=== PATIENT | male | born 1955 | race Caucasian/White ===

== ENCOUNTER 2016-11-20 07:03 | Day surgery (SDC) | payer MEDICARE ==
[~2016-11-20 07:03] MED LIST: ACETAMINOPHEN500 M2 PO; ADULT ASPIRIN81 MG PO; ADULT LOW DOSE81 M1 PO; ADULT MUCU100 MG/5 M PO; ADVAIR 25028 BLISTE1 INH; ALBUTEROL0.83 MG/ML INH; ANTI-FUNGAL15 GM TP; APAP500 MG PO; ASPIRIN325 MG; ATROVENT 0.03%30 ML; AVELOX400 MG PO; AYR SALINE NA14.1 GM TP; BACTRIM DS1 TA1 PO; BENZONATATE PO; CLARITIN10 MG PO; CLEOCIN HCL300 M1 PO; CLEOCIN150 MG/CA1 PO; CLINDAMYCIN HC300 M2; COMBIVENT INH14.7 GM INH; COMBIVENT1 PUFF INH; COMPAZINE10 M PO; COREG3.125 M1 PO; CPAP; CULTURELLE1 EAC1 PO; DALIRESP500 MC1 PO; DALIRESP500 MCG PO; DELTASONE20 MG PO; DICLOFENAC SODI75 M1 PO; DICLOFENAC SODI75 MG PO; DIFLUCAN100 MG PO; DILTIAZEM HCL30 MG PO; DIPHENHYDRAMINE25 PO; ELIQUIS5 M1 PO; FEXOFENADINE H180 MG PO; FLONASE16 G1; FLONASE16 GM NS; H; HYDROCHLOROTH12.5 M2 PO; IBUPROFEN800 MG PO; INCRUSE ELLI62.5 MCG INH; IRON PO; KEFLEX500 MG PO; LEVAQUIN500 M1 PO; LEVAQUIN750 M1 PO; LEVAQUIN750 MG PO; LEVOFLOXACIN750 MG PO; LEVOTHROID175 MCG PO; LEVOTHYROXINE137 MC1 PO; LEVOTHYROXINE137 MCG PO; LEVOTHYROXINE150 MCG PO; LISINOPRIL20 MG PO; LISINOPRIL40 MG PO; LYRICA150 MG PO; LYRICA300 M1 PO; LYRICA300 MG PO; MELOXICAM7.5 M1 PO; MELOXICAM7.5 MG PO; MOTRIN600 MG; MUCINEX600 MG PO; NORVASC5 M1 PO; NORVASC5 M2 PO; NYSTATIN ORAL S60 M1 SSW; OMEPRAZOLE20 M2 PO; OMEPRAZOLE20 M3 PO; OMNICEF300 MG PO; OXYGEN; PERIDEX480 ML PO; PRAVASTATIN SOD40 M1 PO; PRAVASTATIN SOD40 MG PO; PREDNISOLONE5 MG PO; PREDNISONE; PREDNISONE10 M2 PO; PREDNISONE10 MG PO; PREDNISONE20 MG PO; PROAIR HFA8.5 GM INH; PROTONIX40 M2 PO; RANITIDINE HCL150 MG PO; ROBITUSSIN DM PO; ROBITUSSIN-AC5 ML PO; SPIRIVA18 MC1 IH; SPIRIVA18 MCG IH; STERAPRED10 MG/DOSE PO; STERAPRED5 MG/DOSE- PO; SYMBICORT 160-1 PUFF INH; SYMBICORT 160-4.6 GM IH; TAMIFLU75 MG/CAP PO; TRAMADOL HCL50 MG; TRIAMCINOLONE A15 GM TP; TYLENOL #31 TA1 PO; TYLENOL EXTRA500 M1 PO; TYLENOL W/CODEI1 TAB PO; TYLENOL325 M1 PO; TYLENOL325 MG; TYLENOL325 MG PO; TYLENOL500 MG; TYLENOL500 MG PO; ULTRAM50 M1 PO; VALACYCLOVIR1000 M1 PO; VIBRAMYCIN100 M1; VIBRAMYCIN100 M1 PO; ZESTRIL40 M1 PO; ZESTRIL40 M2 PO; ZITHROMAX250 MG; ZITHROMAX250MG Z-PAK PO; ZOLOFT50 M1 PO; ZYRTEC10 M7 PO; ZYRTEC10 MG PO; [UNRECOGNIZED DRUG - CODE] IH; [UNRECOGNIZED DRUG - OTHER]; [UNRECOGNIZED DRUG - OTHER] PO
[2016-11-20] MEDS ORDERED: LYRICA300 M1 PO (07:36)
[2016-11-20] MEDS ORDERED: LISINOPRIL40 M1 PO (07:37)
[2016-11-20 08:00] LABS: BASO % 0.5 % (0-2); EOS % 2.1 % (0-7); EOSINOPHIL ABSOLUTE COUNT 0.1 tho/cmm (0.0-0.7); HCT-HEMATOCRIT 41.7 % (36.0-53.5); IMMATURE GRANULOCYTES ABSOLUTE 0.01 tho/cmm (0-0.03); IMMATURE GRANULOCYTES PERCENT 0.2 % (0-0.3); LYMPH % 37.2 % (20-45); LYMPH ABSOLUTE COUNT 1.6 tho/cmm (0.8-4.5); MCH (MEAN CORPUSCULAR HGB) 30.2 pg (28.0-32.0); MCHC MEAN CORPUSCULAR HGB CONC 33.6 % (32.0-36.0); MCV (MEAN CELL VOLUME) 90.1 fl (82.0-96.0); MEAN PLATELET VOLUME 9.9 cmc (9.4-12.4); MONO % 9.8 % (0-12); MONOCYTE ABSOLUTE COUNT 0.4 tho/cmm (0.0-1.2); NEUTROPHIL ABSOLUTE COUNT 2.2 tho/cmm (1.6-8.0); NEUTROPHIL-AUTOMATED 2.2 tho/cmm (1.6-8.0); NEUTROPHILS % 50.2 % (40-80); PLATELET COUNT 193 tho/cmm (150-450); RED BLOOD COUNT 4.63 mil/cmm (4.40-5.70); RED CELL DISTRIBUTION WIDTH 14.8 % (12.4-16.4); WHITE BLOOD COUNT 4.4 tho/cmm (4.0-10.0)
[2016-11-20 08:05] LABS: INR 0.9 INR (0.9-1.1); PROTHROMBIN TIME 10.4 SECONDS (9.0-13.6)
[2016-12-18] MEDS ORDERED: OXYGEN (12:43)
== END 2016-11-20 13:05 ==
LOC: CTSCAN 07:03 → SHSB 07:07
PROVIDERS: Radiology Diagnostic Radiology
PROC: 0BBJ3ZX Excision of Left Lower Lung Lobe, Percutaneous Approach, Diagnostic (ICD-10-PCS; principal; 2016-11-20)
DX: C34.32 Malignant neoplasm of lower lobe, left bronchus or lung (principal); E78.5 Hyperlipidemia, unspecified; I10 Essential (primary) hypertension; F17.210 Nicotine dependence, cigarettes, uncomplicated; M19.90 Unspecified osteoarthritis, unspecified site; J45.909 Unspecified asthma, uncomplicated; J44.9 Chronic obstructive pulmonary disease, unspecified; M79.7 Fibromyalgia; K21.9 Gastro-esophageal reflux disease without esophagitis; M10.9 Gout, unspecified; E03.9 Hypothyroidism, unspecified; G47.30 Sleep apnea, unspecified; Z88.1 Allergy status to other antibiotic agents; Z88.2 Allergy status to sulfonamides; Z88.5 Allergy status to narcotic agent; Z88.8 Allergy status to other drugs, medicaments and biological substances; Z87.01 Personal history of pneumonia (recurrent); Z96.611 Presence of right artificial shoulder joint; Z98.890 Other specified postprocedural states; Z79.01 Long term (current) use of anticoagulants; Z79.1 Long term (current) use of non-steroidal anti-inflammatories (NSAID); Z79.2 Long term (current) use of antibiotics; Z79.82 Long term (current) use of aspirin; Z79.899 Other long term (current) drug therapy
CPT/HCPCS: J2250; J3010; J7030

== ENCOUNTER 2017-03-07 09:39 | Emergency (ER) | payer MEDICARE ==
[~2017-03-07] VITALS: Ht 182.9 cm; Wt 97.1 kg
[~2017-03-07 09:39] MED LIST changes: +LISINOPRIL40 M1 PO
[2017-03-07] MEDS ORDERED: PROSCAR5 M1 PO (10:02)
[2017-03-07] MEDS ORDERED: GUAIFENESIN200 M3 PO (10:03)
[2017-03-07 10:43] LABS: BASO % 0.1 % (0-2); EOS % 0.4 % (0-7); HCT-HEMATOCRIT 37.7 % (36.0-53.5); HGB-HEMOGLOBIN 12.4 gm/dl (13.5-17.0); IMMATURE GRANULOCYTES ABSOLUTE 0.02 tho/cmm (0-0.03); IMMATURE GRANULOCYTES PERCENT 0.2 % (0-0.3); LYMPH % 9.1 % (20-45); LYMPH ABSOLUTE COUNT 0.8 tho/cmm (0.8-4.5); MCH (MEAN CORPUSCULAR HGB) 28.6 pg (28.0-32.0); MCHC MEAN CORPUSCULAR HGB CONC 32.9 % (32.0-36.0); MCV (MEAN CELL VOLUME) 86.9 fl (82.0-96.0); MEAN PLATELET VOLUME 9.3 cmc (9.4-12.4); MONO % 7.2 % (0-12); MONOCYTE ABSOLUTE COUNT 0.6 tho/cmm (0.0-1.2); NEUTROPHIL ABSOLUTE COUNT 6.8 tho/cmm (1.6-8.0); NEUTROPHIL-AUTOMATED 6.8 tho/cmm (1.6-8.0); PLATELET COUNT 173 tho/cmm (150-450); RED BLOOD COUNT 4.34 mil/cmm (4.40-5.70); RED CELL DISTRIBUTION WIDTH 14.3 % (12.4-16.4); WHITE BLOOD COUNT 8.2 tho/cmm (4.0-10.0)
[2017-03-07 10:50] LABS: INR 1.2 INR (0.9-1.1); PROTHROMBIN TIME 13.9 SECONDS (9.0-13.6)
[2017-03-07 10:55] LABS: ANION GAP 12 mmol/L (0-20); BLOOD UREA NITROGEN 21 mg/dl (6-24); CALCIUM 8.9 mg/dl (8.5-10.5); CARBON DIOXIDE-VENOUS 26 mmol/L (22-32); CHLORIDE 109 mmol/l (96-110); CREATININE 0.92 mg/dl (0.60-1.30); GLUCOSE 108 mg/dL (70-110); POTASSIUM 3.5 mmol/L (3.7-5.1); SODIUM 143 mmol/L (135-145); eGFR VALUE FOR BLACK >90 mL/Min
[2017-03-07] MEDS ORDERED: LEVAQUIN750 M1 PO (11:53)
== END 2017-03-07 12:16 ==
LOC: EDMED 09:39
PROVIDERS: Physician Assistant
DX: J18.9 Pneumonia, unspecified organism (principal); I10 Essential (primary) hypertension; J44.9 Chronic obstructive pulmonary disease, unspecified; I48.91 Unspecified atrial fibrillation; K21.9 Gastro-esophageal reflux disease without esophagitis; Z87.891 Personal history of nicotine dependence; Z88.1 Allergy status to other antibiotic agents; Z88.5 Allergy status to narcotic agent; Z88.8 Allergy status to other drugs, medicaments and biological substances; Z79.82 Long term (current) use of aspirin; Z79.51 Long term (current) use of inhaled steroids; Z79.899 Other long term (current) drug therapy